=== PATIENT | male | born 1965 | race Caucasian/White ===

== ENCOUNTER 2024-02-02 13:00 | Emergency (ER) | payer OTHER, SELFPAY ==
[2024-02-02 13:06] VITALS: BP 129/81; PULSE 82; TEMP 37; O2SAT 97; BMI 34.9
--- NOTE | 2024-02-02 13:10 | ED.GENADUL1 ---
HPI HPI - General Adult General Chief complaint: Skin/Abscess/Foreign Body Stated complaint: CHIN INJURY Time Seen by Provider: 02/02/24 13:08 Source: patient Mode of arrival: walk-in Limitations: no limitations History of Present Illness HPI narrative: Patient is a 58-year-old male who presents to the emergency department for an injury under the chin that occurred just prior to arrival. He states a piece of brass broke off a hammer that he was using and hit him in the chin. He sustained a small chin laceration. Bleeding is well-controlled. Unknown last tetanus. No other associated injuries. He removed a piece of brass prior to arrival. Related Data Previous Rx's ?Medication ?Instructions ?Recorded cephalexin 500 mg capsule 500 mg PO Q8H 5 days #15 caps 02/02/24 Allergies Allergy/AdvReac Type Severity Reaction Status Date / Time cyclobenzaprine Allergy Intermediate Palpitation Verified 02/02/24 13:06 [From Sezioneril] s Opioid HPI Opioid Management Most Recent Opioid Data: No Data to Display Review of Systems ROS Constitutional Denies: fever or chills Ears, nose, mouth, and throat Denies: throat pain or nasal congestion Respiratory Denies: shortness of breath Gastrointestinal Denies: nausea or vomiting Neurological Denies: headache, numbness in extremities or weakness in extremities Hematologic/Lymphatic Denies: easy bruising or easy bleeding PFSH [facility] Social History Little interest or pleasure in doing things: not at all Feeling down, depressed, or hopeless: not at all Exam Narrative Exam Narrative: Gen.: Awake, alert, in no distress Head: Normocephalic, atraumatic ENT: Moist mucous membranes, 1.5 cm L-shaped laceration extending minimally into the subcutaneous tissue under the chin. No active bleeding. No deep laceration noted. No evidence of foreign body. Respiratory: No respiratory distress Extremities: Moves extremities equally, no injuries noted Psych: Normal mood and affect Neuro: No focal neuro deficit Skin: Warm, dry, intact Constitutional Vital Signs, click to edit/add: Last Vital Signs Temp 98.6 F 02/02/24 13:06 Pulse 82 02/02/24 13:06 Resp 17 02/02/24 13:06 BP 129/81 02/02/24 13:06 Pulse Ox 97 02/02/24 13:06 O2 Del Method Room Air 02/02/24 13:06 Course Vital Signs Vital signs: Vital Signs Temperature 98.6 F 02/02/24 13:06 Pulse Rate 82 02/02/24 13:06 Respiratory Rate 17 02/02/24 13:06 Blood Pressure 129/81 02/02/24 13:06 Pulse Oximetry 97 02/02/24 13:06 Oxygen Delivery Method Room Air 02/02/24 13:06 Temperature 98.6 F 02/02/24 13:06 Pulse Rate 82 02/02/24 13:06 Respiratory Rate 17 02/02/24 13:06 Blood Pressure 129/81 02/02/24 13:06 Pulse Oximetry 97 02/02/24 13:06 Oxygen Delivery Method Room Air 02/02/24 13:06 Medical Decision Making MDM Narrative Medical decision making narrative: Tetanus updated in the ER. Laceration repaired without difficulty. Please see procedure note for details. Suture removal in 7 to 10 days with PCP. Please return to the emergency department if symptoms change or worsen. Patient started on Keflex as a precaution. Laceration repair: Done under sterile conditions. The use of Shur-Clens prep the area. Local injection with lidocaine 1% was used, approximately 5 cc. The wound was irrigated copiously with normal saline. The wound was explored there was no evidence of foreign material. The laceration was approximated with 4-0 nylon. 3 simple interrupted sutures were placed. Patient tolerated the procedure well. The patient was neurovascularly intact post. the patient had bacitracin applied to the laceration and a dry sterile dressing was place. The patient will need to follow-up in the next 7-10 days for removal SUPERVISED APC VISIT, PHYSICIAN ATTESTATION: Based on the medical record the care appears appropriate. ? Medical Records Medical records reviewed: Yes I reviewed the patient's medical records Discharge Plan Discharge Chief Complaint: Skin/Abscess/Foreign Body Clinical Impression: Laceration of chin Patient Disposition: Home, Self-Care Time of Disposition Decision: 13:11 Condition: Good Prescriptions / Home Meds: New cephalexin 500 mg capsule 500 mg PO Q8H 5 Days Qty: 15 0RF Print Language: Salvadorean Instructions: Laceration (ED) Referrals: ALBAN HOSKINS [Primary Care Provider] - 1 week
[2024-02-02] MEDS: LIDOCAINE HCL 1% 100 MG/10 ML MDV INJ (13:18)
[2024-02-02] MEDS: ADACEL DIPH,PERTUSS(ACELL),TET VAC/PF 0.5 ML ADULT SYRINGE IM (13:19)
[2024-02-02] MEDS: BACITRACIN 0.9 GM PACKET 1 PACKET TOPICAL (13:19)
--- NOTE | 2024-02-02 13:34 | PC.NURSE ---
patient sustain a laceration to his chin while working at home. this patient shows no visible active bleeding and patient voices no other complaints
== END 2024-02-02 13:43 | disposition home or self-care (01) ==
PROVIDERS: Emergency Provider Emergency Medicine; PCP Nurse Practitioner Family
DX: S01.81XA Laceration without foreign body of other part of head, initial encounter (principal); W22.8XXA Striking against or struck by other objects, initial encounter; Z23 Encounter for immunization
CPT/HCPCS: 12011; 90471; 90715; 99283